=== PATIENT | female | born 1950 | race Caucasian/White ===

== ENCOUNTER 2016-06-07 11:07 | Emergency (ER) | payer MEDICARE, OTHER ==
[2016-06-07] MEDS ORDERED: ONDANSETRON HCL 4 MG/2 ML VIAL IV ONE (11:17)
[2016-06-07] MEDS ORDERED: MORPHINE 4 MG/ML INJECTION IV ONE (11:17)
[2016-06-07 11:20] VITALS: TEMP 97.7; BMI 25.0
[2016-06-07] MEDS ORDERED: HYDROmorphone 1 MG INJECTION IV ONE (11:32)
--- NOTE | 2016-06-07 11:47 | EDPRACDOC ---
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 SHE HURT HER LEFT UPPER ARM. PT DENIES ANY OTHER INJURY. SHE DID LAY IN THE ICE FOR ABOUT 15 MINUTES, BUT WAS LAYERED UP FOR THE COLD. Pain Severity: Reports: Moderate Injuries/Pain Location: Reports: upper extremity Reason for Fall: Reports: slipped Loss of Consciousness: no loss of consciousness Associated Symptoms (Fall): Reports: denies symptoms Allergies/Adverse Reactions: Allergies acetaminophen [From NyQuil] Allergy (Verified 06/07/16 11:16) Hives* aspirin [From Percodan] Allergy (Verified 06/07/16 11:16) Itching ciprofloxacin [From Cipro] Allergy (Verified 06/07/16 11:16) Rash-Generalized ciprofloxacin HCl [From Cipro] Allergy (Verified 06/07/16 11:16) Rash-Generalized dextromethorphan HBr [From NyQuil] Allergy (Verified 06/07/16 11:16) Hives* doxylamine [From NyQuil] Allergy (Verified 06/07/16 11:16) Hives* levofloxacin [From Levaquin] Allergy (Verified 06/07/16 11:16) Hives* morphine Allergy (Verified 06/07/16 11:16) Itching norfloxacin [From Noroxin] Allergy (Verified 06/07/16 11:16) Hives* oxycodone HCl [From Percodan] Allergy (Verified 06/07/16 11:16) Itching oxycodone terephthalate [From Percodan] Allergy (Verified 06/07/16 11:16) Itching pseudoephedrine HCl [From NyQuil] Allergy (Verified 06/07/16 11:16) Hives* Quinolones Allergy (Verified 06/07/16 11:16) Difficulty Breathing Home Medications: Ambulatory Orders Amlodipine Besylate [Norvasc] 5 mg PO DAILY 10/17/15 Azilsartan Medoxomil [Edarbi] 80 mg PO DAILY 10/17/15 L.acidoph & Paracasei,B.lactis [Probiotic] 1 cap PO DAILY 10/17/15 Meclizine HCl 25 mg PO Q8H PRN 10/17/15 Hydrocodone/Acetaminophen [Lortab 5-325 mg Tablet] 1 each PO Q4H PRN #20 tablet 06/07/16 Mirtazapine 7.5 - 15 mg PO QHS PRN 06/07/16 Ondansetron [Zofran Odt] 4 mg PO Q6H PRN #10 tab.rapdis 06/07/16 ED Past Medical History - Patient Medical History Neurological History: Denies: Cerebrovascular Accident Cardiac History: Reports: Hypertension. Denies: Congestive Heart Failure, Heart Attack Respiratory History: Reports: Asthma GI/ History: Reports: Gastroesophageal Reflux Psychological History: Denies: Depression Systemic History: Denies: Diabetes, Hyperthyroidism, Hypothyroidism Surgical History: Reports: Hysterectomy, Other (RIGHT ELBOW, KNEE, EXPL ABD LAP) - Social Medical History Smoking Status: Never smoker ETOH: None Substance Abuse: None Lives In: Home EDM Review of Systems - Review of Systems ROS Negative Except as Marked: Yes All systems reviewed and were negative except as marked Musculoskeletal: Arm - Physical Exam Constitutional: Alert (Awake), No apparent distress Oriented to: Time, Person, Place Last recorded Vital Signs: Last Vital Signs Temp 97.7 F 06/07/16 11:14 Pulse 64 06/07/16 11:14 Resp 16 06/07/16 11:14 BP 144/70 06/07/16 11:14 Pulse Ox 100 06/07/16 11:14 Oxygen Pulse Oxygen Saturation 100 O2 Device Room Air Oxygen Flow Rate Fraction of Inspired Oxygen ( FIO2) - HEENT Head: Normal ( normocephalic) Eye Exam: Normal (PERRL, EOMI, Sclera white) Oropharynx: Normal (Pharynx:Moist without exudate,Gums-no swelling) ENT EAC: Normal TMJ: Normal Nose: No Symptoms Reported (septum midline) Neck: Normal (FROM, trachea at midline) - Respiratory/Cardiovascular Respiratory: Normal - CTA (BBS clear to auscultation without adventitious sounds ) Cardiovascular: Normal (RRR without murmur, gallop or rub) - GI Auscultation: Normal (NABS) Palpation: Normal (Soft,No rebound or guarding, non distended) Tenderness: Non tender Keller's Sign: Negative - Musculoskeletal Back: Normal (Non-Tender) Extremities: Normal (Normal tone, Pulses 2+ No cyanosis or edema, FROM) Musculoskeletal Comment: LEFT UPPER ARM SWOLLEN AND TENDER. DECREASED ROM. - Integumentary Skin: Normal, Warm, Dry Lymphatics: Normal (no adenopathy) - Neurologic Memory Impaired: Normal Motor Function: Normal (Normal tone, Pulses 2+ No cyanosis or edema, FROM) Cranial Nerve: Normal (CN II-X11 intact sensation, strength 5/5) Cerebellar: Normal Mood Description: Normal Thought: Coherent Perception: Normal - Diagnostic Imaging Shoulder Image interpreted by: Radiologist Left humeral neck fracture is probably comminuted. CT imaging could be used to further characterize as clinically warranted. Other Image interpreted by: Radiologist HUMERUS: Left humeral neck fracture is probably comminuted. CT imaging could be used to further characterize as clinically warranted. - Departure Yes I personally saw and evaluated the patient. Disposition: Home Condition: Fair Final Diagnosis: Accidental fall, Closed fracture of left proximal humerus Instructions: RICE: Routine Care for Injuries, Arm Fracture in Adults (ED) Education/Counseling Given To: Patient Education/Counseling Given Regarding: Diagnosis, Treatment, Follow Up Referrals: None,No Provider [Primary Care Provider] - One Week Franklin Pimentel MD [Staff Physician] - One Week Prescriptions: Hydrocodone/Acetaminophen [Lortab 5-325 mg Tablet] 1 each PO Q4H PRN #20 tablet PRN Reason: Pain Ondansetron [Zofran Odt] 4 mg PO Q6H PRN #10 tab.rapdis PRN Reason: Nausea/Vomiting
[2016-06-07] MEDS ORDERED: DIPHENHYDRAMINE 50 MG/ML VIAL IV ONE (12:07)
--- NOTE | 2016-06-07 12:13 | DIRPT ---
CLINICAL DATA: Slipped on ice this morning left shoulder pain EXAM: LEFT SHOULDER - 2+ VIEW COMPARISON: None. FINDINGS: Two view exam the left shoulder shows a comminuted fracture of the left humeral neck with apex anterior angulation. Fracture line may extend into the lesser tubercle. Humeral head fragment remains located. Acromioclavicular and coracoclavicular distances appear preserved. IMPRESSION: Left humeral neck fracture is probably comminuted. CT imaging could be used to further characterize as clinically warranted. Electronically Signed By: Willem Dillard M.D. On: 06/07/2016 12:10
--- NOTE | 2016-06-07 12:14 | DIRPT ---
CLINICAL DATA: Recent slip and fall with left arm pain, initial encounter EXAM: LEFT HUMERUS - 2+ VIEW COMPARISON: None. FINDINGS: There is a transverse fracture through the surgical neck of the proximal left humerus. Some mild impaction and angulation at the fracture site is noted. The humeral head is well-seated. No other bony abnormality is noted. IMPRESSION: Surgical neck fracture of the proximal left humerus. Electronically Signed By: Blaise Benson M.D. On: 06/07/2016 12:11
[2016-06-07 12:29] VITALS: BP 116/60; PULSE 63
== END 2016-06-07 13:00 | disposition home or self-care (01) ==
LOC: ED 11:07
DX: S42.202A Unspecified fracture of upper end of left humerus, initial encounter for closed fracture (principal); W00.0XXA Fall on same level due to ice and snow, initial encounter; Y93.9 Activity, unspecified
CPT/HCPCS: 73030; 73060; 96374; 96375; 99284; J1170; J1200; J2405; J2270

== ENCOUNTER → 2016-06-14 | Day surgery (SDC) | payer MEDICARE ==
[2016-06-07 11:20] VITALS: BMI 25.0
[~2016-06-14] MED LIST: BUPIVACAINE 0.5% 30 ML VIAL ONE; CEFAZOLIN 1 GM VIAL ONE; EPHEDrine 50 MG/ML VIAL IM ONE; FENTANYL 100 MCG/2 ML VIAL IV PRN; FENTANYL 250 MCG/5 ML VIAL IV ONE; GLYCOPYRROLATE 1 MG VIAL IM ONE; HYDROmorphone 1 MG INJECTION IV PRN; LABETALOL 20 MG/4 ML SYRINGE IV PRN; LIDOCAINE 100 MG PFS IV ONE; MEPERIDINE 25 MG/ML TUBEX IV PRN; MIDAZOLAM 2 MG/2 ML VIAL IV ONE; NEOSTIGMINE 1 MG/1 ML (1:1000) INJ 10 ML MDV IM ONE; ONDANSETRON HCL 4 MG ODT TAB PO PRN; ONDANSETRON HCL 4 MG/2 ML VIAL IV ONE; ONDANSETRON HCL 4 MG/2 ML VIAL IV PRN; PHENYLEPHRINE 10 MG/ML VIAL IC ONE; PROPOFOL 200 MG/20 ML VIAL IV ONE; ROCURONIUM 50 MG/5 ML VIAL IV ONE; hydrALAZINE 20 MG/ML VIAL IV PRN
--- NOTE | 2016-06-14 08:32 | HIM.ANES ---
Anesthesia Evaluation & Plan Consented Procedure: OPEN REDUCTION INTERNAL FIXATION OF A LEFT PROXIMAL HUMERUS FRACTURE AND OTHER PROCEDURES INDICATED - Focused Review of Systems Cardiac History: Yes: Hx Hypertension, Hx Cardiac Disorders, Hx Abnormal Cholesterol/Hyperlipidemia (CONTROLLED WITH DIET) No: Hx Heart Attack, Hx Congestive Heart Failure HEENT: Yes: Hx Vision Problem (GLASSES), Other HEENT Problems Hx Other HEENT Problems: VERTIGO, ALLERGIC RHINNITIS Respiratory: Yes: Hx Asthma (STABLE) Gastrointestinal: Yes: Hx Gastroesophageal Reflux Disease, Hx Gastrointestinal Disorders Neurological/Musculoskeletal: No: HX Cerebrovascular Accident, Hx Neurological Disorders Psychological: Yes Hx Anxiety, No Hx Depression, Yes Hx Mental/Emotional Disorders Endocrine: No: Hx Hyperthyroidism, Hx Hypothyroidism Blood/Autoimmune: Yes: Hx Anemia No: Hx Blood Transfusions, Hx AIDS, Hx Hepatitis (type) Smoking Status: Never smoker Surgical History: Yes: Appendectomy (2003), Knee (RT KNEE SCOPE 2006), Other ( RIGHT ELBOW, KNEE, EXPL ABD LAP) Other Surgical History: COLON RESECTION WITH OSTOMY 2003, REVERSAL OF OSTOMY 11/2003 - Focused Physical Exam NPO since: 06/13/16 2100 Mallampati: Class II Thyromental Distance: Greater than 3 Neck: Full Range of Motion Dental: Normal - no significant findings Cardiovascular/Chest: Normal Respiratory: Lungs clear Any problems with anesthesia, including nausea and vomiting?: Yes (N&V) Any relatives with a history of Malignant Hyperthermia?: No Beta Jonathan given (if appropriate): N/A Does the patient have a history of Motion Sickness-: Yes Other: Problem List Problem Status Onset Accidental fall Acute Closed fracture of left proximal humerus Acute Allergies Allergy/AdvReac Type Severity Reaction Status Date / Time ciprofloxacin [From Cipro] Allergy Severe Angioedema* Verified 06/14/16 08:14 ciprofloxacin HCl Allergy Severe Angioedema* Verified 06/14/16 08:14 [From Cipro] levofloxacin [From Levaquin] Allergy Severe Angioedema* Verified 06/14/16 08:14 norfloxacin [From Noroxin] Allergy Severe Angioedema* Verified 06/14/16 08:14 Quinolones Allergy Severe Angioedema* Verified 06/14/16 08:14 dextromethorphan HBr Allergy Hives* Verified 06/14/16 08:14 [From NyQuil] doxylamine [From NyQuil] Allergy Hives* Verified 06/14/16 08:14 morphine Allergy Itching Verified 06/14/16 08:14 oxycodone HCl [From Percodan] Allergy Itching Verified 06/14/16 08:14 oxycodone terephthalate Allergy Itching Verified 06/14/16 08:14 [From Percodan] pseudoephedrine HCl Allergy Hives* Verified 06/14/16 08:14 [From NyQuil] Home Medications Medication Instructions Recorded Last Taken Type Amlodipine Besylate [Norvasc] 5 mg PO DAILY 10/17/15 06/14/16 07:00 History Azilsartan Medoxomil [Edarbi] 80 mg PO DAILY 10/17/15 06/14/16 07:00 History L.acidoph & Paracasei,B.lactis 1 cap PO DAILY 10/17/15 06/11/16 History [Probiotic] Meclizine HCl 25 mg PO Q8H PRN 10/17/15 06/14/16 07:00 History Mirtazapine 7.5 mg PO QHS PRN 06/07/16 06/13/16 21:00 History Fluticasone Propionate [Flonase 2 ml NS DAILY 06/13/16 06/14/16 07:00 History Allergy Relief] Hylan Allergy 1 tab PO DAILY 06/13/16 06/13/16 07:00 History Pantoprazole Sodium [Protonix] 40 mg PO DAILY 06/13/16 06/12/16 History Height and Weight Patient's height 5 ft 6 in Patient's weight 73.028 kg BMI 25.0 Vital Signs Temperature 98.6 F 06/14/16 08:12 Pulse Rate 83 06/14/16 08:12 Respiratory Rate 18 06/14/16 08:12 Blood Pressure 153/80 06/14/16 08:12 Pulse Oxygen Saturation 99 06/14/16 08:12 - Anesthetic Plan Anesthesia Type: General, Post-Op Block- for Pain Control ASA Class: 2 -: I have examined this patient and reviewed the medical record. The patient has been assessed prior to anesthesia. Risks and benefits of anesthesia and anesthetic technique options have been discussed and all questions answered. The patient accepts the risk and desires me to proceed with the planned anesthetic.
--- NOTE | 2016-06-14 09:01 | HIMOPRPT ---
PREOPERATIVE DIAGNOSIS: Left proximal humerus [id number] surgical neck. POSTOPERATIVE DIAGNOSIS: Same. PROCEDURE: 1-Open reduction internal fixation of left proximal humerus fracture ; 2-biceps tenodesis FINDINGS: Significant osteoporosis with apex anterior angulation and 50-60% of translation.. SPECIMENS REMOVED: None. ESTIMATED BLOOD LOSS: 50 mL. ANESTHESIA: General. COMPLICATIONS: None. SURGEON: Franklin Pimentel M.D. BEEKEEPER: DEVENDRA Cross TOURNIQUET TIME: None. IMPLANTS: Include a metal Striker proximal humerus 3 hole locking plate including 7 proximal locking screws with 3 distal nonlocking screws. SIGNIFICANT HISTORY, INDICATIONS, AND CONSENT: Frances is a 66-year-old active [id number] female status post mechanical fall sustaining a significantly displaced left proximal humerus fracture. Risks, benefits, and alternatives were discussed at length. No guarantees were stated or implied. The patient wished to proceed with surgical intervention to potentially improve function of the left shoulder and decrease likelihood of malunion and nonunion. OPERATION IN DETAIL: Patient was seen in the preop holding area where the left shoulder was signed and consent was reviewed. The patient was then taken to the operating room and placed in the supine position on the operating table. Anesthesia placed monitoring devices and performed general anesthesia. The patient was then carefully positioned and 30 beach chair position. We carefully padded all bony prominences as well as gently flexed the hips and knees appropriately. Cervical spine was paid particular attention too. Next the right upper extremity was sterilely prepped and draped in the usual orthopedic fashion. A time-out was performed and consensus was reached amongst the participants in the OR suite after prophylactic antibiotics were given. Next A standard deltopectoral approach to the proximal humerus was made with skin incision just lateral to the coracoid process proximally and distally towards the deltoid insertion. Sharp dissection was made through skin the deltopectoral interval was identified and using blunt dissection the subdeltoid space was bluntly dissected as was the subpectoral space. The deltoid retractor was placed and with internal rotation or fracture was identified. The fracture was cleaned of significant soft tissue and fracture hematoma which was in early stages of fracture healing. The long head biceps was identified and tenotomized in the rotator interval. After the fracture was clearly identified significant displacement was noted in the the medialized humeral shaft. Fracture was then reduced openly after putting traction sutures in the supraspinatus and subscapularis. With this provisionally pinned we placed a plate in an acceptable position confirmed radiographically along the lateral humeral cortex. This was fixed in the oblong screw with a nonlocking screw to bring the humeral shaft to the plate. With compression against the humeral head and acceptable alignment in both AP and lateral views we then placed locking screws under radiographic guidance to total 7. Once the head was well captured we completed our fixation with a total of 3 nonlocking screws along the humerus shaft. Fracture was well stabilized with slight apex anterior angulation however Acceptable alignment was achieved. Live fluoroscopy was then used to confirm extra-articular placement of our locking screws proximally. Our wound was thoroughly irrigated. A biceps tenodesis was performed at the level of the pectoralis tendon with 2. FiberWire. Deltopectoral approach was closed using 0-Vicryl suture in a loose fashion. 2-0 Monocryl was used for subcutaneous closure and jose for skin tears incision just misplaced patient was arousable anesthesia and taken to the post anesthesia care unit in stable condition. PLAN: The patient will be blocked in PACU and if pain controlled allowed to be discharged home. Otherwise, she will be admitted for 23 hour stay. We have provided oxycodone p.r.n. pain. Patient began very gentle passive range of motion to include pendulum exercises immediately. Patient has been placed an abduction pillow sling.
--- NOTE | 2016-06-14 09:25 | HIM.ANESP ---
Procedure Note DATE OF PROCEDURE: 06/14/16 PREOPERATIVE DIAGNOSIS: Post-operative Pain Control. POSTOPERATIVE DIAGNOSIS: Same PROCEDURE: Brachial Plexus Block at interscalene PERFORMING PROVIDER: Francesco Dominique MD TIME OUT: [913] BLOCK START Time: [914] BLOCK STOP Time: [917] MEDICATIONS: Bupivacaine 0.5% 30 ml EPINEPHRINE 1:200,000 NEEDLE: EchoStim 21G 50MM STERILE BARRIERS: Cap, mask, sterile gloves. COMPLICATIONS: None. BLOOD LOSS: 0 cubic centimeters. PROCEDURE FINDINGS AND TECHNIQUE:At the request of the Operative Surgeon and patient, a Brachial Plexus Block was performed for post-operative pain relief. Risk, benefits and alternatives of the procedure were explained. Informed consent was obtained and surgical site confirmed with patient and chart. Time out was performed. Pulse oximetry, EKG and BP monitoring were established.. The Right neck was prepped and draped in a sterile manner. The Brachial plexus was visualized by ultrasound and an image is appended. (see chart) An EchoStim needle was inserted in the proximity of the nerves. Under direct visualization local anesthetic was injected in incremental volumes of 5 ml with negative aspirations throughout. There was no pain on injection. Patient tolerated the procedure well without complications and the case was continued under general anesthesia as was the request of the patient.
[2016-06-14 12:13] VITALS: TEMP 97.1
[2016-06-14 13:11] VITALS: PULSE 77
[2016-06-14 14:01] VITALS: BP 144/73
--- NOTE | 2016-06-14 14:01 | SC.ANESPOS ---
Post-Anesthesia Note LOC: Fully Awake Post-Anesthesia Assessment: Awake, Returned to Baseline, Hemodynamically Stable , Pain Control Adequate Phase I & II Recovery Complete: Yes Apparent Anesthesia Complication: No : N - Vital Signs Blood Pressure: 144/73 Pulse: 77 Resp Rate: 18 O2 Sat: 96 Temp: 97.1 F
== END ==
LOC: SDC 07:41
PROVIDERS: ATTEND Orthopaedic Surgery
PROC: 0PSD04Z Reposition Left Humeral Head with Internal Fixation Device, Open Approach (ICD-10-PCS; principal; 2016-06-14 10:05)
DX: S42.222A 2-part displaced fracture of surgical neck of left humerus, initial encounter for closed fracture (principal); I10 Essential (primary) hypertension; J45.909 Unspecified asthma, uncomplicated; E78.5 Hyperlipidemia, unspecified; K21.9 Gastro-esophageal reflux disease without esophagitis; M81.0 Age-related osteoporosis without current pathological fracture; H91.90 Unspecified hearing loss, unspecified ear; F41.9 Anxiety disorder, unspecified; Z79.899 Other long term (current) drug therapy; W01.0XXA Fall on same level from slipping, tripping and stumbling without subsequent striking against object, initial encounter
CPT/HCPCS: 23615; A9270; J0690; J2001; J2370; J2405; J2550; J2710; J3010; J3490; J2250